=== PATIENT | female | born 1965 | race Caucasian/White ===

== ENCOUNTER 2020-05-02 15:56 | Emergency (ER) | payer OTHER ==
[~2020-05-02] VITALS: Ht 157.4 cm; Wt 63.5 kg
[2020-05-02] MEDS ORDERED: KEFLEX500 M1 PO (17:56)
[2020-05-02] MEDS ORDERED: Motrin,Rufen800 MG PO (17:56)
== END 2020-05-02 18:03 | disposition home or self-care (01) ==
LOC: ED 15:56
DX: S93.602A Unspecified sprain of left foot, initial encounter (principal); S90.112A Contusion of left great toe without damage to nail, initial encounter; X58.XXXA Exposure to other specified factors, initial encounter; Y93.11 Activity, swimming; Y92.34 Swimming pool (public) as the place of occurrence of the external cause; Y99.8 Other external cause status

== ENCOUNTER → 2020-10-07 | Outpatient (CLI) | payer OTHER ==
[~2020-10-07] MED LIST: KEFLEX500 M1 PO; Motrin,Rufen800 MG PO
== END | disposition home or self-care (01) ==
LOC: COVID19 15:33
PROVIDERS: ATTEND Hospitalist
DX: Z20.828 Contact with and (suspected) exposure to other viral communicable diseases (principal)